=== PATIENT | female | born 1970 | race Caucasian/White ===

== ENCOUNTER 2017-04-10 16:14 | Outpatient (CLI) | payer OTHER | END 2017-04-10 16:15 | disposition home or self-care (01) | LOC: BICMAMMO 16:14 | PROVIDERS: ATTEND Obstetrics & Gynecology | DX: Z12.31 Encounter for screening mammogram for malignant neoplasm of breast (principal); Z80.3 Family history of malignant neoplasm of breast | CPT/HCPCS: 77063; 77067 ==

== ENCOUNTER 2019-10-09 10:06 | Outpatient (CLI) | payer OTHER ==
--- NOTE | 2019-10-09 10:50 | MMO ---
Bilateral MAMMO Bilat Screen [facility]. CLINICAL HISTORY: Patient is 49 years old and is seen for screening. The patient has the following family history of breast cancer: mother, at age 34 and sister, at age 49. The patient has no personal history of cancer. The patient has a history of right Excisional Biopsy in 1987 - benign. VIEWS: The views performed were: bilateral craniocaudal with tomosynthesis and bilateral mediolateral oblique with tomosynthesis. FILMS COMPARED: The present examination has been compared to prior imaging studies performed at [facility] on 10/08/2013, 12/17/2014, 12/19/2015 and 04/10/2017. This study has been interpreted with the assistance of computer-aided detection. MAMMOGRAM FINDINGS: The breasts are heterogeneously dense, which could obscure a lesion on mammography. There is an asymmetry seen in the CC view only seen in the posterior central region of the right breast. In the left breast, there are no suspicious masses, calcifications or areas of architectural distortion. IMPRESSION: ASYMMETRY IN THE RIGHT BREAST REQUIRES ADDITIONAL EVALUATION. RECOMMEND DIAGNOSTIC MAMMOGRAM. ULTRASOUND MAY ALSO PROVE USEFUL AT RECALL. THE RESULTS OF THIS EXAM WERE SENT TO THE PATIENT. ACR BI-RADS Category 0 - Incomplete: Need additional imaging evaluation. [facility] will notify the patient of the need for additional imaging services. MAMMOGRAPHY NOTE: 1. A negative mammogram report should not delay a biopsy if a dominant of clinically suspicious mass is present. 2. Approximately 10% to 15% of breast cancers are not detected by mammography. 3. Adenosis and dense breasts may obscure an underlying neoplasm. Reported by: REINALDO GERMAIN MD Electonically Signed: [id number]
== END 2019-10-09 10:07 | disposition home or self-care (01) ==
LOC: BICMAMMO 10:06
PROVIDERS: ATTEND Obstetrics & Gynecology
DX: Z12.31 Encounter for screening mammogram for malignant neoplasm of breast (principal); N64.89 Other specified disorders of breast; Z80.3 Family history of malignant neoplasm of breast; Z91.89 Other specified personal risk factors, not elsewhere classified
CPT/HCPCS: 77063; 77067

== ENCOUNTER 2019-10-13 09:56 | Outpatient (CLI) | payer OTHER ==
--- NOTE | 2019-10-13 11:06 | MMO ---
Right Breast MAMMO Unilat Diag [facility]. CLINICAL HISTORY: Patient is 49 years old and is seen for diagnostic exam. The patient has the following family history of breast cancer: mother, at age 34 and sister, at age 49. The patient has no personal history of cancer. The patient has a history of right Excisional Biopsy in 1987 - benign. VIEWS: The views performed were: . FILMS COMPARED: The present examination has been compared to prior imaging studies performed at [facility] on 12/19/2015, 04/10/2017, 10/09/2019 and 10/13/2019. This study has been interpreted with the assistance of computer-aided detection. MAMMOGRAM FINDINGS: The breast is heterogeneously dense, which could obscure a lesion on mammography. Finding 1: There is an oval mass measuring 8 x 13 mm with circumscribed margins seen in the posterior upper-outer region of the right breast. 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 Finding 2: There are stable benign appearing calcifications seen in the right breast. IMPRESSION: FINDING 1: MASS IN THE RIGHT BREAST IS PROBABLY BENIGN. FOLLOW-UP IN 6 MONTHS IS RECOMMENDED. FINDING 2: STABLE CALCIFICATIONS IN THE RIGHT BREAST ARE BENIGN. THE RESULTS OF THIS EXAM WERE SENT TO THE PATIENT. ACR BI-RADS Category 3 - Probably benign finding - short interval follow-up suggested. [facility] will notify the patient of the need for additional imaging services. MAMMOGRAPHY NOTE: 1. A negative mammogram report should not delay a biopsy if a dominant of clinically suspicious mass is present. 2. Approximately 10% to 15% of breast cancers are not detected by mammography. 3. Adenosis and dense breasts may obscure an underlying neoplasm. Reported by: CHAD PAUL MD Electonically Signed: [id number]
--- NOTE | 2019-10-13 11:45 | ULT ---
RIGHT BREAST ULTRASOUND: HISTORY: Abnormal finding on mammogram. FINDINGS: Ultrasound examination of the right breast is performed with attenuation to the 10 o'clock position. At the 10 o'clock position, approximately 2 cm from the nipple, there is an oval circumscribed hypoe choic solid-appearing mass fairly deep within the breast tissue measuring 0.7 x 1.1 x 1.2 cm in size which has an appearance for that of a typical fibroadenoma. There are several other smaller cysts no rani more in the 9 o'clock position, one measuring 0.3 x 0.8 cm, another one approximately 8 cm from t he nipple in the 9 o'clock position measures 0.5 x 0.7 cm. 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 Since this was not definitively seen with certainty on prior mammograms, 6-month followup examination is recommended. BIRADS category 3, probably benig n findings. Six-month followup right unilateral diagnostic mammogram and right breast ultrasound is recommended. Findings were discussed with the patient who is in agreement. POS: OFF
== END 2019-10-13 09:57 | disposition home or self-care (01) ==
LOC: BICMAMMO 09:56
PROVIDERS: ATTEND Obstetrics & Gynecology
DX: R92.2 Inconclusive mammogram (principal); N63.10 Unspecified lump in the right breast, unspecified quadrant
CPT/HCPCS: G0279

== ENCOUNTER 2020-09-07 09:15 | Outpatient (CLI) | payer BC | END 2020-09-07 09:16 | disposition home or self-care (01) | LOC: BICMAMMO 09:15 | PROVIDERS: ATTEND Obstetrics & Gynecology | DX: R92.8 Other abnormal and inconclusive findings on diagnostic imaging of breast (principal) | CPT/HCPCS: 77066; G0279 ==